=== PATIENT | female | born 1995 | race Caucasian/White ===

== ENCOUNTER 2018-05-18 00:05 | Inpatient (IN) | payer BC ==
[~2018-05-18] VITALS: Ht 175.3 cm; Wt 88.0 kg
[2018-05-18] MEDS ORDERED: ZANTAC150 MG PO (00:21)
[2018-05-18] MEDS ORDERED: CARAFATE1 GM PO (00:21)
[2018-05-18] MEDS ORDERED: VITAFOL-OB+DHA1 EACH PO (00:22)
--- NOTE | 2018-05-18 09:07 | PR ---
[facility] [address] [place], [place] [address] Signed Progress Notes IP Datetime Report Generated by BOOGIE: 05/18/2018 09:07 PROGRESS NOTES: [id number] Impression: Reassuring heart rate Plan: Continue present management Informed Consent Obtain: Induction of Labor VITAL SIGNS: [id number] Vital Signs: Reviewed; Within Normal Limits EXAM: [id number] Dilatation: 1.5 Effacement: 50 Station: -2 Uterine Contractions: irregular MEMBRANES: [id number] Membrane Status: Intact Comments: Pt seen and evaluated. Contractions spaced nicely w/ terb and now not painful. FHT reassuring. Will continue expectant management due to staffing. Reviewed option for patient to discharge home due to elective nature of induction, but she declines. Will consider Cook cath when staff available. Fetus A: [id number] FHR Baseline: 135 Variability: Moderate 6-25bpm Accelerations: None Decelerations: None FHR Category: Category I Presentation: Vertex Comments on Fetus A: No evidence of metabolic acidosis Fetus B: [id number] Signing Physician: Vel Chatman DO Copies: ~ *Electronically Signed* 05/18/18 0907 VEL CHATMAN DO PATIENT NAME: SHARON CHRISTIANSEN PROGRESS NOTE DATE OF : [birth year] PHYSICIAN: VEL CHATMAN DO RPT #: [id number] REPORT IS CONFIDENTIAL AND NOT TO BE RELEASED WITHOUT AUTHORIZATION
--- NOTE | 2018-05-18 13:26 | PR ---
[facility] [address] [place], [place] [address] Signed Progress Notes IP Datetime Report Generated by BOOGIE: 05/18/2018 13:26 PROGRESS NOTES: [id number] Impression: Reassuring heart rate; Rupture of membranes Procedures: Scalp Electrode Plan: Continue present management Informed Consent Obtain: Induction of Labor VITAL SIGNS: [id number] Vital Signs: Reviewed; Within Normal Limits EXAM: [id number] Dilatation: 2.0 Effacement: 70 Station: -2 Uterine Contractions: q2 minutes MEMBRANES: [id number] Membrane Status: Intact Comments: Pt seen and examined. Doing well. Pt was up at bedside when she had SROM for small amount clear fluid. Contractions regular and not painful. Discussed anticipated course of labor, epidural on demand, and monitoring. All questions answered. Fetus A: [id number] FHR Baseline: 140 Variability: Moderate 6-25bpm Accelerations: None Decelerations: None FHR Category: Category I Presentation: Vertex Comments on Fetus A: No evidence of metabolic acidosis Fetus B: [id number] Signing Physician: Vel Chatman DO Copies: ~ *Electronically Signed* 05/18/18 1326 VEL CHATMAN DO PATIENT NAME: SHARON CHRISTIANSEN PROGRESS NOTE DATE OF : [birth year] PHYSICIAN: VEL CHATMAN DO RPT #: [id number] REPORT IS CONFIDENTIAL AND NOT TO BE RELEASED WITHOUT AUTHORIZATION
--- NOTE | 2018-05-18 15:16 | PR ---
[facility] [address] [facility] [place], [place] [address] Signed Progress Notes IP Datetime Report Generated by BOOGIE: 05/18/2018 15:16 PROGRESS NOTES: [id number] Impression: Normal progression of labor Procedures: Scalp Electrode Plan: Continue present management Informed Consent Obtain: Induction of Labor VITAL SIGNS: [id number] Vital Signs: Reviewed; Within Normal Limits EXAM: [id number] Dilatation: 2.0 Effacement: 70 Station: -2 Uterine Contractions: q 2-4 minutes MEMBRANES: [id number] Membrane Status: Intact Comments: Pt seen and evaluated. Doing well. Anesthesia just completed epidural placement and pt resting comfortably. RN to place nuegnt and check cervical dilation. Will continue expectant management. Fetus A: [id number] FHR Baseline: Indeterminate Variability: Moderate 6-25bpm Accelerations: None Decelerations: None FHR Category: Category I Presentation: Vertex Comments on Fetus A: No evidence of metabolic acidosis Fetus B: [id number] Signing Physician: Vel Chatman DO Copies: ~ *Electronically Signed* 05/18/18 1516 VEL CHATMAN DO PATIENT NAME: SHARON CHRISTIANSEN PROGRESS NOTE DATE OF : 94 PHYSICIAN: VEL CHATMAN DO RPT #: [id number] REPORT IS CONFIDENTIAL AND NOT TO BE RELEASED WITHOUT AUTHORIZATION
--- NOTE | 2018-05-18 19:15 | PR ---
[facility] [address] [facility] [place], [place] [address] Signed Progress Notes IP Datetime Report Generated by CPN: 05/18/2018 19:15 PROGRESS NOTES: [id number] Impression: Normal progression of labor; Reassuring heart rate Procedures: Sterile Vag Exam Plan: Continue present management; Anticipate Vaginal Delivery Informed Consent Obtain: Vaginal Delivery; Risks, Benefits and Alternatives Discussed VITAL SIGNS: [id number] Vital Signs: Reviewed; Within Normal Limits EXAM: [id number] Dilatation: 9.0 Effacement: 100 Station: 0 Uterine Contractions: q2 minutes MEMBRANES: [id number] Membrane Status: Intact Amniotic Fluid Color: Clear Comments: Pt seen and examined. Doing well. Comfortable w/ epidural. Will continue expectant managment. Anticipate Fetus A: [id number] FHR Baseline: 145 Variability: Moderate 6-25bpm Accelerations: 15X15 Decelerations: Variable FHR Category: Category II Presentation: Vertex Other Presentation: EVY Comments on Fetus A: No evidence of metabolic acidosis Fetus B: [id number] Signing Physician: Vel Chatman DO Copies: ~ *Electronically Signed* 05/18/18 1915 VEL CHATMAN DO PATIENT NAME: SHARON CHRISTIANSEN PROGRESS NOTE DATE OF : 94 PHYSICIAN: VEL CHATMAN DO RPT #: [id number] REPORT IS CONFIDENTIAL AND NOT TO BE RELEASED WITHOUT AUTHORIZATION
--- NOTE | 2018-05-18 19:37 | PR ---
[facility] [address] [place], [place] [address] Signed Progress Notes IP Datetime Report Generated by BOOGIE: 05/18/2018 19:37 PROGRESS NOTES: [id number] Impression: Normal progression of labor; Non-reassuring heart rate Procedures: Sterile Vag Exam Plan: Continue present management; Anticipate Vaginal Delivery Informed Consent Obtain: Vaginal Delivery; Risks, Benefits and Alternatives Discussed VITAL SIGNS: [id number] Vital Signs: Reviewed; Within Normal Limits VS Notable Details: Relatively hypotensive since epidural bolus EXAM: [id number] Dilatation: 9.0 Effacement: 100 Station: 0 Uterine Contractions: q2 minutes MEMBRANES: [id number] Membrane Status: Intact Amniotic Fluid Color: Clear Comments: Reviewed strip. Minimal variability w/ intermittent late decelerations. Reviewed vital signs that show relative hypotension since epidural bolus. Pt c/o mild CRUMP and some lightheadeness. Will give ephedrine 5mg IV now. Continue intrauterine recussitation. Fetus A: [id number] FHR Baseline: 145 Variability: Minimal - Undetectable to <5bpm Accelerations: None Decelerations: Late FHR Category: Category II Presentation: Vertex Other Presentation: EVY Comments on Fetus A: Pt w/ intermittent late decels Fetus B: [id number] Signing Physician: Vel Chatman DO Copies: ~ *Electronically Signed* 05/18/181936 VEL CHATMAN DO PATIENT NAME: SHARON CHRISTIANSEN CLARISSE PROGRESS NOTE DATE OF : 94 PHYSICIAN: VEL CHATMAN DO RPT #: [id number] REPORT IS CONFIDENTIAL AND NOT TO BE RELEASED WITHOUT AUTHORIZATION
--- NOTE | 2018-05-18 19:54 | PR ---
[facility] [address] [place], [place] [address] Signed Progress Notes IP Datetime Report Generated by BOOGIE: 05/18/2018 19:54 PROGRESS NOTES: [id number] Impression: Normal progression of labor; Reassuring heart rate Procedures: Sterile Vag Exam Plan: Anticipate Vaginal Delivery Informed Consent Obtain: Vaginal Delivery; Risks, Benefits and Alternatives Discussed VITAL SIGNS: [id number] Vital Signs: Reviewed; Within Normal Limits VS Notable Details: BP improved w/ ephedrine EXAM: [id number] Dilatation: 10.0 Effacement: 100 Station: 1 Uterine Contractions: q2-3 minutes MEMBRANES: [id number] Membrane Status: Intact Amniotic Fluid Color: Clear Comments: Pt seen and examined. Diong better. Less lightheadness since ephedrine. C/O nause/vomiting and pressure. Pt complete and +1 station. Reviewed decreased variability. acceleration noted with gentle scalp stim reassuring. Anticipate . Will start pushing and monitor status closely. Pt and understand and agree. All questions answered. Fetus A: [id number] FHR Baseline: 145 Variability: Minimal - Undetectable to <5bpm Accelerations: 15X15 Decelerations: None FHR Category: Category II Presentation: Vertex Other Presentation: EVY Comments on Fetus A: No evidence of metabolic acidosis. Acceleration w/ scalp stim noted Fetus B: [id number] Signing Physician: Vel Chatman DO Copies: *Electronically Signed* 05/18/181953 VEL CHATMAN DO PATIENT NAME: SHARON CHRISTIANSEN PROGRESS NOTE DATE OF : 94 PHYSICIAN: VEL CHATMAN DO RPT #: [id number] REPORT IS CONFIDENTIAL AND NOT TO BE RELEASED WITHOUT AUTHORIZATION [address] [place] [address] Signed ~ *Electronically Signed* 05/18/181953 VEL CHATMAN DO PATIENT NAME: SHARON CHRISTIANSEN PROGRESS NOTE DATE OF : 94 PHYSICIAN: VEL CHATMAN DO RPT #: [id number] REPORT IS CONFIDENTIAL AND NOT TO BE RELEASED WITHOUT AUTHORIZATION
--- NOTE | 2018-05-18 20:51 | PR ---
[facility] [address] [place], [place] [address] Signed Progress Notes IP Datetime Report Generated by BOOGIE: 05/18/2018 20:51 PROGRESS NOTES: [id number] Impression: Normal progression of labor; Reassuring heart rate Procedures: Sterile Vag Exam Plan: Continue present management; Anticipate Vaginal Delivery Other Plans: Continue pushing Informed Consent Obtain: Vaginal Delivery; Risks, Benefits and Alternatives Discussed VITAL SIGNS: [id number] Vital Signs: Reviewed; Within Normal Limits VS Notable Details: BP improved w/ ephedrine EXAM: [id number] Dilatation: 10.0 Effacement: 100 Station: 2 Uterine Contractions: q2-4 minutes MEMBRANES: [id number] Membrane Status: Intact Amniotic Fluid Color: Clear Comments: Pt seen and examined. Doing well and pushing excellent with CTXs. FHT reassuring. Anticipate soon. Fetus A: [id number] FHR Baseline: 135 Variability: Moderate 6-25bpm Accelerations: 15X15 Decelerations: None FHR Category: Category I Presentation: Vertex Other Presentation: EVY Comments on Fetus A: No evidence of metabolic acidosis; reassuring FHT Fetus B: [id number] Signing Physician: Vel Chatman DO Copies: ~ *Electronically Signed* 05/18/182050 VEL CHATMAN DO PATIENT NAME: SHARON CHRISTIANSEN PROGRESS NOTE DATE OF : 94 PHYSICIAN: VEL CHATMAN #: [id number] REPORT IS CONFIDENTIAL AND NOT TO BE RELEASED WITHOUT AUTHORIZATION
--- NOTE | 2018-05-18 21:58 | PR ---
[facility] [address] [place], [place] [address] Signed Progress Notes IP Datetime Report Generated by BOOGIE: 05/18/2018 21:58 PROGRESS NOTES: [id number] Impression: Arrest of dilatation/descent Procedures: Sterile Vag Exam Plan: Continue present management; Anticipate Vaginal Delivery Other Plans: Continue pushing Informed Consent Obtain: Vaginal Delivery; Section Delivery; Vacuum/Forceps Assist; Risks, Benefits and Alternatives Discussed VITAL SIGNS: [id number] Vital Signs: Reviewed; Within Normal Limits VS Notable Details: BP improved w/ ephedrine EXAM: [id number] Dilatation: 10.0 Effacement: 100 Station: 1 Uterine Contractions: q 2 minutes MEMBRANES: [id number] Membrane Status: Intact Amniotic Fluid Color: Clear Comments: Pt pushing well with contractions. Pushing since 20:05. Pt w/ increased molding and perineal edema, but minimal descent noted. FHT reassuring. Have attempted several position changes. Reviewed course of 2nd stage of labor with patient. Discussed options for management; continued pushing, operative vaginal delivery, or . Will continue position changes and pushing, but if limited or no progress noted, will proceed with primary LTCS. Pt and understand and agree. All questions answered Fetus A: [id number] FHR Baseline: 140 Variability: Moderate 6-25bpm Accelerations: 15X15 Decelerations: None FHR Category: Category I Presentation: Vertex Other Presentation: Direct OP Comments on Fetus A: No evidence of metabolic acidosis Fetus B: [id number] Signing Physician: Vel Chatman DO *Electronically Signed* 05/18/18 2158 CHATMAN,VEL Aguilera DO PATIENT NAME: SHARON CHRISTIANSEN CLARISSE PROGRESS NOTE DATE OF : 94 PHYSICIAN: VEL CHATMAN DO RPT #: [id number] REPORT IS CONFIDENTIAL AND NOT TO BE RELEASED WITHOUT AUTHORIZATION [facility] [address] [place] [address] Signed Copies: ~ *Electronically Signed* 05/18/18 215 CHATMAN,VEL Aguilera DO PATIENT NAME: SHARON CHRISTIANSEN PROGRESS NOTE DATE OF : 94 PHYSICIAN: VEL CHATMAN DO RPT #: [id number] REPORT IS CONFIDENTIAL AND NOT TO BE RELEASED WITHOUT AUTHORIZATION
--- NOTE | 2018-05-18 22:23 | PR ---
[facility] [address] [place], [place] [address] Signed Progress Notes IP Datetime Report Generated by BOOGIE: 05/18/2018 22:23 PROGRESS NOTES: [id number] Impression: Arrest of dilatation/descent; Reassuring heart rate Procedures: Sterile Vag Exam Plan: Deliver- Section Other Plans: Continue pushing Informed Consent Obtain: Section Delivery; Risks, Benefits and Alternatives Discussed VITAL SIGNS: [id number] Vital Signs: Reviewed; Within Normal Limits VS Notable Details: BP improved w/ ephedrine EXAM: [id number] Dilatation: 10.0 Effacement: 100 Station: 1 Uterine Contractions: q2 minutes MEMBRANES: [id number] Membrane Status: Intact Amniotic Fluid Color: Clear Comments: Pt seen and examined. Again no progress noted. Significant molding and perineal edema noted, and baby remains in direct op. Pt had excellent pushing effort. Reviewed delivery in detail, including risks, benefits, and alternatives as previously discussed. Reviewed risks include but are not limited to infection, bleeding, injury to surrounding organs. Also discussed risk of pp hemorrhage and likely need for repeat deliveries in the future. All questions answered to best of my ability and to patient and 's apparent satisfaction. Fetus A: [id number] FHR Baseline: 140 Variability: Moderate 6-25bpm Accelerations: None Decelerations: Variable FHR Category: Category II Presentation: Vertex Other Presentation: Direct OP Comments on Fetus A: Variable decelerations w/ pushing. Reassuring w/ moderate variability Fetus B: [id number] Signing Physician: Vel Chatman, DO *Electronically Signed* 05/18/18 2223 CHATMAN,VEL Aguilera DO PATIENT NAME: SHARON CHRISTIANSEN PROGRESS NOTE DATE OF : 94 PHYSICIAN: VEL CHATMAN DO RPT #: [id number] REPORT IS CONFIDENTIAL AND NOT TO BE RELEASED WITHOUT AUTHORIZATION [facility] [address] [place] [address] Signed Copies: ~ *Electronically Signed* 05/18/182222 CHATMAN,VEL Aguilera DO PATIENT NAME: SHARON CHRISTIANSEN PROGRESS NOTE DATE OF : 94 PHYSICIAN: VEL CHATMAN DO RPT #: [id number] REPORT IS CONFIDENTIAL AND NOT TO BE RELEASED WITHOUT AUTHORIZATION
--- NOTE | 2018-05-19 00:36 | NUR ---
05/19/18 0036 Ana Jerome 0013- PT ARRIVES TO [facility] ROOM 106 FROM OR ON RA WITH SATS 98%. RESP EVEN ND UNALBORED. SPINAL AT T4. PT C/O RIGHT SHOULDER PAIN 06/25. DENIES NAUSEA. BABY PLACED ON MOMS CHEST. SKIN TO SKIN AND . PT'S AT BEDSIDE. 0019- VSS. RA SATS >90%. SPINAL AT T-4. LIGHT BLEEDING. FUNDUS FIRM. 0024- VSS. RESP EVEN AND UNALBORED. PT HOLDS BABY ON CHEST. /SKIN TO SKIN. RA SATS >90%. SPINAL T-4. LIGHT BLEEDING. FUNDUS FIRM AT UMBILICUS. 0035- RA SATS >90%. RESP EVEN AND UNLABORED. BLEEDING SCANT WITH FUNDUS FIRM. SPINAL T-4. IZQUIERDO REMAINS IN PLACE. 0040- REPORT GIVEN TO [facility] SWAPNA WATKINS.
--- NOTE | 2018-05-19 13:25 | PR ---
[facility] [address] [place], [place] [address] Signed PP Progress Notes Datetime Report Generated by BOOGIE: 05/19/2018 13:25 SUBJECTIVE: [id number] Pain: Within normal limits Nausea/Vomiting: Denies Flatus: No Bowel Movement: No Vital Signs: [id number] Vital Signs: Reviewed Notable Details: Mild tachycardia EXAM: [id number] Cardiovascular: Normal Respiratory: Normal Abdomen/Uterus: Normal Lochia: Normal Vulva/Perineum: Not Done Breasts: Not Done CVA Tenderness: Normal Extremities: Normal Incision: Normal Progress: Normal Exam Comments: Fundus firm U-2. Nontender. Incision well healing. IMPRESSION/PLAN/PROCEDURES: [id number] Impression: Normal progression Plan: Continue present management Progress Notes: Pt seen and examined, doing well. Has not ambulated, but is tolerating full diet. Nugent cath in place draining yellow urine. SCDs in place. well. No fevers/chills/lightheadedness. Pain and lochia well controlled. Reviewed labor/delivery in detail including J-extension of uterine incision and considerations in future . All questions answered. Plan: progressive activity/ambulation. D/C nugent when ambulating well. Start oral iron replacement therapy for acute blood loss anemia (postop hgb 8.4). Continue routine postop care. Signing Physician: Vel Chatman DO Copies: ~ *Electronically Signed* 05/19/18 4724 VEL CHATMAN DO PATIENT NAME: SHARON CHRISTIANSEN PROGRESS NOTE DATE OF : 94 PHYSICIAN: VEL CHATMAN DO RPT #: [id number] REPORT IS CONFIDENTIAL AND NOT TO BE RELEASED WITHOUT AUTHORIZATION
--- NOTE | 2018-05-20 08:45 | PR ---
[facility] [address] [place], [place] [address] Signed PP Progress Notes Datetime Report Generated by CPNicole: 05/20/2018 08:44 SUBJECTIVE: [id number] Pain: Within normal limits Nausea/Vomiting: Denies Flatus: Yes Bowel Movement: No Vital Signs: [id number] Vital Signs: Reviewed; Within Normal Limits Notable Details: Mild tachycardia noted EXAM: [id number] Cardiovascular: Normal Respiratory: Normal Abdomen/Uterus: Normal Lochia: Normal Vulva/Perineum: Not Done Breasts: Normal CVA Tenderness: Normal Extremities: Normal Incision: Normal Progress: Normal Exam Comments: Fundus firm U-2 nontender. Incision healing well. while examining pt IMPRESSION/PLAN/PROCEDURES: [id number] Impression: Normal progression Plan: Continue present management Progress Notes: Pt seen and examined, doing well. Ambulating, voiding, and tolerating full diet. SCDs in place. well. No fevers/chills/lightheadedness. Pain and lochia well controlled. Again reviewed labor/delivery including J-extension of uterine incision and considerations in future . All questions answered. Plan: Continue routine postop care. Signing Physician: Vel Chatman DO Copies: ~ *Electronically Signed* 05/20/18 0844 VEL CHATMAN DO PATIENT NAME: SHARON CHRISTIANSEN PROGRESS NOTE DATE OF : 94 PHYSICIAN: VEL CHATMAN DO RPT #: [id number] REPORT IS CONFIDENTIAL AND NOT TO BE RELEASED WITHOUT AUTHORIZATION
--- NOTE | 2018-05-21 08:45 | PR ---
[facility] [address] [place], [place] [address] Signed PP Progress Notes Datetime Report Generated by BOOGIE: 05/21/2018 08:45 SUBJECTIVE: [id number] Pain: Within normal limits Nausea/Vomiting: Denies Flatus: Yes Bowel Movement: Yes Vital Signs: [id number] Vital Signs: Reviewed; Within Normal Limits Notable Details: tachycardia improved EXAM: [id number] Cardiovascular: Normal Respiratory: Normal Abdomen/Uterus: Normal Lochia: Normal Vulva/Perineum: Not Done Breasts: Not Done CVA Tenderness: Normal Extremities: Normal Incision: Normal Progress: Normal Exam Comments: Fundus firm, U-2, nontender. Abd slightly distened and tympanic. IMPRESSION/PLAN/PROCEDURES: [id number] Impression: Normal progression Other Impression: Primary LTCS w/ J-extension of uterine incision. Plan: Remove piyush; Discharge Progress Notes: Pt seen and examined. Doing well. Ambulating, voiding, and tolerating full diet. Pain and lochia well controlled. well. Reports some mild diarrhea. No lightheadedness/dizziness. Desires d/c home today. Reviewed d/c instructions in detail; again reviewed J-extension of hysterotomy and implications for future . Discussed iron therapy and repeat CBC @ 6 wk pp visit to reassess anemia and gestational thrombocytopenia. Pt understands and agrees. Signing Physician: Vel Chatman DO Copies: ~ *Electronically Signed* 05/21/18 0853 VEL CHATMAN DO PATIENT NAME: SHARON CHRISTIANSEN PROGRESS NOTE DATE OF : 94 PHYSICIAN: VEL CHATMAN DO RPT #: [id number] REPORT IS CONFIDENTIAL AND NOT TO BE RELEASED WITHOUT AUTHORIZATION
--- NOTE | 2018-05-29 07:58 | OR ---
[facility] [place] [facility] [address] [place], [place] [address] Signed DATE OF OPERATION: 05/18/2018 SURGEON: Vel Chatman DO PREOPERATIVE DIAGNOSES: 1. Term . 2. Arrest of descent. 3. Gestational thrombocytopenia. POSTOPERATIVE DIAGNOSES: 1. Term . 2. Arrest of descent. 3. Gestational thrombocytopenia. 4. Deeply impacted head. 5. Acute blood loss anemia. PROCEDURE PERFORMED: Primary low transverse delivery with J extension. MACHINE LEAD BURNER: Effie Rodney MD ANESTHESIA: Epidural. ESTIMATED BLOOD LOSS: 1300 mL. COMPLICATIONS: None. SPECIMENS: Cord blood for routine analysis and cord blood for gases. FINDINGS: Viable male , 7 pounds 15 ounces with Apgars of 7 and 8, in the ROP position with no nuchal noted. Gases pending at the time of dictation. A deeply engaged head that was eventually delivered in the reverse breech position after failed Patwardhan maneuver. Following delivery, there was complex extension of the hysterotomy that was repaired in two layers. Electronically Signed By: VEL CHATMAN DO 05/29/18 0758 PATIENT NAME: SHARON HALL OPERATIVE REPORT DATE OF : [birth year] REPORT #: [id number] PHYSICIAN: VEL CHATMAN DO PCP: NO PRIMARY CARE PHYSICIAN REPORT IS CONFIDENTIAL AND NOT TO BE RELEASED WITHOUT AUTHORIZATION [facility] [address] [place] [id number] Signed INDICATIONS: Ms. Hall is a pleasant 22-year-old, G1, P0, with IUP at 39 weeks and 5 days gestation, who presented for elective induction of labor. She was admitted and given one dose of Cytotec per vagina. She developed tachysystole and fetus tolerated this well. She was expectantly managed and spontaneously ruptured later in the day. She progressed without augmentation to 10 cm after receiving an epidural. The patient then pushed well with contractions. The patient was noted to have presentation in the persistent OP position. She pushed over 2 hours with multiple position changes, etc to encourage descent. No descent was noted and significant caput and perineal edema was noted. We reviewed options including continued pushing, primary , or operative vaginal delivery. The patient wishes to proceed with delivery. Risks, benefits, and alternatives were discussed in detail. Please see progress note for details. DESCRIPTION OF PROCEDURE: The patient was seen in the operating room, where time-out was performed to confirm correct patient, correct procedure. Epidural anesthesia was bolused and found to be adequate. The patient was prepped and draped in the supine position with a bump under the right hip. ICPs were on and running and a Richards catheter had previously been inserted. Ancef 2 g were given preoperatively. No heparin was indicated. A vaginal prep was performed. After ensuring that epidural was satisfactory, a Pfannenstiel skin incision was made using a surgical scalpel. This incision was carried down to the fascia. The fascia was nicked just medial of the midline and fascial incision was extended bilaterally using sharp dissection. The fascia was grasped with Kochers, elevated, and the underlying rectus muscles dissected off without difficulty. The peritoneum was then entered bluntly and the bladder was noted to be somewhat full. The position of the Rcihards was adjusted and the bladder drained nicely. Survey of the abdomen and pelvis was performed with normal uterus and baby in persistent ROP position. Hysterotomy was then performed using a surgical scalpel and hysterotomy was extended bilaterally using blunt dissection. The amnion was then ruptured for a moderate amount of clear fluid. The surgeon's hand was placed in the uterine cavity and the head was noted to be very deeply engaged. This was not easily reduced and delivered through the uterine incision. The left hand was nearly delivered spontaneously. Decision was made to attempt a Patwardhan maneuver. The left arm was delivered. The fetus was rotated and the right arm was attempted to be delivered. This was unsuccessful. Decision was made to abandon the Patwardhan maneuver. The left hand was replaced and decision was made to J the incision up. Bandage scissors were used to carefully J the left lateral portion of the uterine incision several centimeters after ensuring that parts and bowel were well away from the site. The feet were then grasped and delivered and the remainder of the delivered easily in the reverse breech maneuver. The was vigorous and cried and the cord doubly clamped and cut and Electronically Signed By: VEL CHATMAN DO 05/29/18 0758 PATIENT NAME: SHARON HALL OPERATIVE REPORT DATE OF : [birth year] REPORT #: [id number] PHYSICIAN: VEL CHATMAN DO PCP: NO PRIMARY CARE PHYSICIAN REPORT IS CONFIDENTIAL AND NOT TO BE RELEASED WITHOUT AUTHORIZATION [facility] [address] [place], [place] [address] Signed the handed to waiting pediatric team for further care. Cord blood and gases were obtained for routine analysis. The placenta was then expressed intact with a centrally inserted three-vessel cord. Hysterotomy was then repaired using 0 Vicryl in a running locked manner. Complex hysterotomy extensions were noted bilaterally with extensions extending down towards the cervix several centimeters. These were reapproximated using 2-0 Vicryl in two layers. Bilateral uterine artery bleeding was noted and these were made hemostatic with O'Essex stitches with careful attention to avoid the dermoid tissue off the uterine corpus. Once the hysterotomy was closed and uterine arteries are controlled, the J portion of the incision was repaired using 0 Vicryl in a running nonlocked manner. A 2nd imbricating layer was applied to the J incision as well. A 2nd imbricating layer of 0 Vicryl in a horizontal manner was then applied to the lower uterine incision. Small amount of oozing was noted in the midline, this was made hemostatic with a [id number]. The pelvis was then irrigated and found to be hemostatic. Evicel was applied to the lower uterine segment and again hemostasis was appreciated. ACell sheet was applied to lower uterine segment after the pelvis was irrigated. The peritoneum was then reapproximated using 2-0 Vicryl in a running nonlocked manner after ACell sheet was applied to the lower uterine segment. Rectus muscles were examined, found to be hemostatic. These were reapproximated using 0 Vicryl in three simple interrupted sutures. Fascia was then reapproximated using 0 Vicryl in a running nonlocked manner. Skin was reapproximated using surgical piyush after the subcu was reapproximated using 2-0 Vicryl. The uterus was then Crede'd for approximately 300 mL. The patient was then taken to the PACU in good and stable condition. Sponge, needle, and instrument counts were correct x2 at the end of the procedure. Dr. Rodney was present and participated in all portions of the procedure. DO ELEAZAR Rodríguez/ASHLEIGH /[id number] Copies: Electronically Signed By: VEL CHATMAN, DO 05/29/18 0758 PATIENT NAME: SHARON HALL OPERATIVE REPORT DATE OF : [birth year] REPORT #: [id number] PHYSICIAN: VEL CHATMAN DO PCP: NO PRIMARY CARE PHYSICIAN REPORT IS CONFIDENTIAL AND NOT TO BE RELEASED WITHOUT AUTHORIZATION [address] [place], [place] [address] Signed ~ Electronically Signed By: VEL CHATMAN DO 05/29/18 0758 PATIENT NAME: SHARON HALL OPERATIVE REPORT DATE OF : [birth year] REPORT #: [id number] PHYSICIAN: VEL CHATMAN DO PCP: NO PRIMARY CARE PHYSICIAN REPORT IS CONFIDENTIAL AND NOT TO BE RELEASED WITHOUT AUTHORIZATION
== END 2018-05-21 12:05 | disposition home or self-care (01) | DRG 787 ==
LOC: FBC 00:05
PROVIDERS: ADMIT Obstetrics & Gynecology
PROC: 3E0P7VZ Introduction of Hormone into Female Reproductive, Via Natural or Artificial Opening (ICD-10-PCS; 2018-05-18)
PROC: 00HU33Z Insertion of Infusion Device into Spinal Canal, Percutaneous Approach (ICD-10-PCS; 2018-05-18)
PROC: 3E0R3BZ Introduction of Anesthetic Agent into Spinal Canal, Percutaneous Approach (ICD-10-PCS; 2018-05-18)
PROC: 10D00Z1 Extraction of Products of Conception, Low, Open Approach (ICD-10-PCS; principal; 2018-05-18 23:03)
DX: O32.4XX0 Maternal care for high head at term, not applicable or unspecified (principal); O99.12 Other diseases of the blood and blood-forming organs and certain disorders involving the immune mechanism complicating childbirth; O76 Abnormality in fetal heart rate and rhythm complicating labor and delivery; D62 Acute posthemorrhagic anemia; Z3A.39 39 weeks gestation of pregnancy; Z37.0 Single live birth; D69.6 Thrombocytopenia, unspecified; O99.62 Diseases of the digestive system complicating childbirth; K21.9 Gastro-esophageal reflux disease without esophagitis; O99.02 Anemia complicating childbirth; Z88.8 Allergy status to other drugs, medicaments and biological substances; Z87.440 Personal history of urinary (tract) infections; Z79.899 Other long term (current) drug therapy
CPT/HCPCS: 01960; 01961; 36415; 82803; 85027; C1763; J0690; J1885; J2274; J2405; J2550; J2590; J2795; J3105; J7120

== ENCOUNTER 2020-10-02 18:22 | Emergency (ER) | payer BC ==
[~2020-10-02] VITALS: Ht 175.3 cm; Wt 77.1 kg
[~2020-10-02 18:22] MED LIST: CARAFATE1 GM PO; VITAFOL-OB+DHA1 EACH PO; ZANTAC150 MG PO
--- NOTE | 2020-10-02 20:21 | EKG ---
[facility] [address] [facility] [place], [place] [address] Signed Sinus tachycardia Otherwise normal ECG No previous ECGs available Confirmed by MAREK BROWN MD ([id number]) on 10/02/2020 8:21:41 PM Electronically Signed By: MAREK BROWN MD 10/02/202020 PATIENT NAME: SHARON CHRISTIANSEN CLARISSE Electrocardiogram DATE OF : [birth year] PHYSICIAN: MAREK BROWN MD REPORT #: [id number] REPORT IS CONFIDENTIAL AND NOT TO BE RELEASED WITHOUT AUTHORIZATION
[2020-10-02] MEDS ORDERED: HYDROCODON-ACE1 EA10 PO (20:55)
[2020-10-02] MEDS ORDERED: ZOFRAN4 MG PO (20:55)
== END 2020-10-02 22:16 | disposition home or self-care (01) ==
LOC: ED 18:22
DX: A08.4 Viral intestinal infection, unspecified (principal); Z87.891 Personal history of nicotine dependence; Z88.1 Allergy status to other antibiotic agents; Z20.822 Contact with and (suspected) exposure to COVID-19
CPT/HCPCS: 71045; 80053; 81001; 83690; 83735; 84484; 84703; 85025; 93005; 93010; 96361; 96374; 96375; 99285-25; C9803; J1170; J2405; J7030; U0003